=== PATIENT | female | born 1965 | race Caucasian/White ===

== ENCOUNTER 2016-09-26 17:28 | Emergency (ER) | payer OTHER ==
[2016-09-26 17:55] LABS: HEMOGLOBIN 12.7 gm/dl (12.3-15.3); RED BLOOD COUNT 4.21 M/UL (4.00-5.10); WHITE BLOOD COUNT 11.5 K/UL (4.5-11.0)
== END 2016-09-26 20:56 | disposition home or self-care (01) ==
LOC: ER1 17:28
PROVIDERS: Specialist/Technologist Athletic Trainer
DX: S39.012A Strain of muscle, fascia and tendon of lower back, initial encounter (principal); S29.012A Strain of muscle and tendon of back wall of thorax, initial encounter; I10 Essential (primary) hypertension; E11.9 Type 2 diabetes mellitus without complications; Z88.0 Allergy status to penicillin; Z88.2 Allergy status to sulfonamides; V89.2XXA Person injured in unspecified motor-vehicle accident, traffic, initial encounter; Y92.410 Unspecified street and highway as the place of occurrence of the external cause; Z79.899 Other long term (current) drug therapy
CPT/HCPCS: 36415; 70450; 72125; 72128; 72131; 73564; 73590; 80053; 82550; 84703; 85025; 96374; 96375; 99284; J2270; J2405

== ENCOUNTER → 2020-06-10 | Outpatient (CLI) | payer OTHER ==
[~2020-06-10] MED LIST: CATAPRES 0.1MG0.1 MG PO; CATAPRES0.3 MG PO; COZAAR100 MG PO; CYMBALTA60 MG PO; FIORICET TAB1 EA PO; KEFLEX CAP 500500 MG PO; LOPRESSOR50 MG PO; NORCO 7.5-3251 EACH PO; ONDANSETRON ODT4 MG PO; PERCOCET 5-3251 EACH PO; SEROQUEL100 MG PO; TOPAMAX25 MG PO; ZOFRAN4 MG PO
[2020-06-10 09:51] LABS: HEMOGLOBIN 12.5 gm/dl (12.3-15.3); RED BLOOD COUNT 4.44 M/UL (4.00-5.10); WHITE BLOOD COUNT 7.6 K/UL (4.5-11.0)
== END ==
LOC: LAB 09:06
PROVIDERS: Neurological Surgery
DX: I72.9 Aneurysm of unspecified site (principal); R94.31 Abnormal electrocardiogram [ECG] [EKG]
CPT/HCPCS: 36415; 80048; 83036; 84703; 85027; 85610; 85730; 93005